=== PATIENT | female | born 1975 | race Caucasian/White ===

== ENCOUNTER → 2019-12-07 | Outpatient (CLI) | payer OTHER ==
[~2019-12-07] MED LIST: HEPARIN 1,000 UNITS/ML 10ML VIAL (FOR RADIOLOGY& DIALYSIS ONLY)(J1644-10) As Ordered ONE; ISOVUE-300 61% 50ML VIAL (Q9967) As Ordered ONE; LIDOCAINE 1% MDV 20ML VIAL As Ordered ONE; MIDAZOLAM INJ 2 MG/2 ML VIAL (J2250) As Ordered ONE; PRAV20TA2 PO; SYNT175T2 PO; TIZA4CAP PO; ULTR50TA8 PO; ZETI10TA16 PO; fentaNYL 100 MCG/2 ML INJECTION (J3010) As Ordered ONE
[2019-12-07 14:01] LABS: HEMATOCRIT 40.2 % (36.0-47.0); HEMOGLOBIN 13.6 g/dl (12.0-15.5); MEAN CORPUSCULAR HEMOGLOBIN 30.4 pg (27.0-33.0); MEAN CORPUSCULAR HGB CONC 33.8 g/dl (32.0-36.5); MEAN CORPUSCULAR VOLUME 89.7 fl (80.0-96.0); PLATELET COUNT, AUTOMATED 206 10^3/uL (150-450); RED BLOOD COUNT 4.48 10^6/uL (4.00-5.40)
[2019-12-07 14:28] LABS: BLOOD UREA NITROGEN 10 MG/DL (7-18); CALCIUM LEVEL 9.4 MG/DL (8.5-10.1); CARBON DIOXIDE LEVEL 27 MEQ/L (21-32); CHLORIDE LEVEL 108 MEQ/L (98-107); CREATININE FOR GFR 0.81 MG/DL (0.55-1.30); GLOMERULAR FILTRATION RATE > 60.0 (>58); GLUCOSE, FASTING 83 MG/DL (70-100); POTASSIUM SERUM 3.6 MEQ/L (3.5-5.1); SODIUM LEVEL 140 MEQ/L (136-145)
[2019-12-07 14:33] LABS: HCG, SERUM QUALITATIVE NEGATIVE (NEGATIVE)
--- NOTE | 2019-12-07 15:28 | ROOPDOC ---
[facility] Report Of Operation Report of Operation DATE OF PROCEDURE: 12/07/19 PREPROCEDURE DIAGNOSES: Factor V leiden, preoperative for spine surgery POSTPROCEDURE DIAGNOSES: Same PROCEDURE: 1. Vena cava gram 2. Placement of an Option infrarenal IVC filter 3. Completion venogram SURGEON: Ady Espino MD ANESTHESIA: Local anesthesia 5 mL lidocaine. Moderate intravenous conscious sedation was supervised by Dr. Espino. The patient was independently monitored by registered nurse assigned to the Department of radiology using automated blood pressure, EKG, and pulse oximetry. The detailed sedation record is permanently start in the hospital information system. The following is a brief sedation record: Start time 14:51, stop time 15:09, Versed 1 mg IV, fentanyl 25 g IV. INDICATION FOR PROCEDURE: This is a very pleasant 44-year-old patient who is undergoing spine surgery and has a history of factor V leiden and there is concern for perioperative DVT and PE while the patient is relatively immobile for a period of time with her surgery and recovery. Risks benefits and alternatives to an IVC filter placement were explained at length the patient she is agreeable to proceed. Informed consent was obtained. INTERPRETATION: 1. The vena cava is widely patent and free from thrombus. The renal veins are widely patent and identified and marked for IVC filter placement. The filter was placed in good infrarenal position with a scant amount of tilt that is not clinically significant. Following placement there is no extravasation and the IVC is widely patent. REPORT OF OPERATION: The patient was brought to the angiographic suite in stable condition. Her right upper extremities prepped and draped in sterile fashion. A timeout was performed. Sedation was administered without complication. Local anesthesia was Mr. to skin and subcutaneous tissue over the cephalic vein. Access was obtained and a wire was advanced and a micro-sheath was placed in the cephalic vein. A quick contrast injection confirmed we were in the cephalic vein in the vein was suitable size to support the sheath access to the SVC and IVC. We advanced Glidewire through the micro-sheath into the central system and through the superior vena cava. It took a moment but eventually were able to manipulate the wire down into the inferior vena cava. We then passed the sheath over the wire to approximately L3 and flushed sheath with saline. Vena cava gram was performed in the renal veins were identified and marked for filter placement. We then advanced the filter 2 and infrarenal position within the sheath. We retracted the sheath to deploy the filter which was in good position with the tip at the renal veins and scant amount of tilt. Completion venogram showed the filter to be in excellent position and no extravasation and no thrombus within the IVC or the filter. We then removed the sheath pressure was held at the antecubital access site for 5 minutes for good hemostasis. Sterile dressings were applied and the patient was taken to recovery in stable condition. She tolerated the procedure well and there were no compilations. ESTIMATED BLOOD LOSS: Approximately 1 mL. COMPLICATIONS: None. PLAN: Okay for the patient to resume normal activities, but for 24 hours no heavy lifting or strenuous exercise with the right upper extremity. After that, okay to resume activity as tolerated. We would like to see the patient back in 3 months for a bilateral lower extremity venous duplex and discussion of removal of IVC filter. Okay to proceed with spine surgery from vascular surgery standpoint. ADY ESPINO MD Dec 07, 2019 15:28
[2019-12-07 15:50] VITALS: BP 125/87
== END ==
LOC: M IRPRO 13:30
PROVIDERS: ATTEND Surgery Vascular Surgery
DX: D68.51 Activated protein C resistance (principal); E03.9 Hypothyroidism, unspecified; Z87.891 Personal history of nicotine dependence; Z86.718 Personal history of other venous thrombosis and embolism
CPT/HCPCS: 37191; 80048; 84703; 85027; 99152; C1769; C1880; C1894; J1644; J2250; J3010; Q9967

== ENCOUNTER 2019-12-17 11:00 | Inpatient (IN) | payer OTHER ==
--- NOTE | 2019-12-14 17:29 | HPE ---
DATE OF SCHEDULED ADMISSION: 12/20/2019 ATTENDING PHYSICIAN: Dr. Jean CHIEF COMPLAINT: Back pain. HISTORY: This is a pleasant 44-year-old female patient with progressively worsening back pain and stiffness. She has failed to improve with conservative management. She has elected for surgery for continued symptoms. She has consented for a left unilateral laminectomy at L4-5 and transforaminal interbody lumbar fusion at L4-5 with the use of iliac crest bone graft. ALLERGIES: None. MEDICATIONS: - Synthroid 25 mcg one tablet once per day - pravastatin 20 mg one tablet once per day - Zetia 10 mg one tablet once per day. - tizanidine 4 mg one tablet three times a day MEDICAL CONDITIONS: Include lumbar spondylolisthesis, lumbar spinal stenosis, lumbar radiculopathy, hypothyroidism, elevated cholesterol. SURGICAL HISTORY: None. FAMILY HISTORY: Arthritis, heart disease, elevated cholesterol, thyroid disease. SOCIAL HISTORY: She does not smoke. She rarely uses alcohol. She is employed through the . REVIEW OF SYSTEMS: Denies fever or chills. Denies chest pain, shortness breath or cough. Denies difficulty breathing. Denies abdominal pain. Notes persistent pain in her back, pain with weightbearing activities. PHYSICAL EXAM: Today reveals alert, well-nourished, well-developed female patient. She walks with a slow gait. Her mood and affect are appropriate. Her gait is not wide-based. Her neck is supple without adenopathy or jugular venous distention (JVD). Lungs are clear to auscultation without rales or wheeze. Heart Exam: Regular rate and rhythm. Abdomen: Bowel sounds are present. Exam of the back: Reveals the skin to be intact. No erythema, edema or ecchymosis. Straight leg raise testing is negative. There is diffuse tenderness along the lumbar spine. Mcrae's is negative. Clonus is negative. Deep tendon reflexes are trace at the knees. Well-perfused lower extremities. She can sensate light touch. LABORATORY DATA: None collected IMPRESSION: Symptomatic lumbar spinal stenosis and lumbar spondylolisthesis. PLAN: She is consented by Dr. Jean for a left unilateral laminectomy at L4-5 and transforaminal interbody fusion at L4-5 with the use of iliac crest bone graft from the right or left side planned. We did admitting counselor the patient about no use of nonsteroidal anti-inflammatory drugs (NSAIDS) five days prior to the surgery, nothing by mouth (n.p.o.) after midnight the night before surgery. She will need to call the hospital the day before; if it is a , then the Friday before to verify her time. She understands the importance of arrival on time. She will bring her back brace to the hospital with her. Her postoperative and preoperative instructions were reviewed. All of her questions were answered. MAEGAN
[~2019-12-17] VITALS: Ht 170.2 cm; Wt 88.0 kg
[~2019-12-17 11:00] MED LIST changes: -HEPARIN 1,000 UNITS/ML 10ML VIAL (FOR RADIOLOGY& DIALYSIS ONLY)(J1644-10) As Ordered ONE; -ISOVUE-300 61% 50ML VIAL (Q9967) As Ordered ONE; -LIDOCAINE 1% MDV 20ML VIAL As Ordered ONE; -MIDAZOLAM INJ 2 MG/2 ML VIAL (J2250) As Ordered ONE; -fentaNYL 100 MCG/2 ML INJECTION (J3010) As Ordered ONE
[2019-12-20] MEDS ORDERED: GABAPENTIN 300 MG CAP PO ONE (06:00)
[2019-12-20] MEDS ORDERED: PERCOCET 5MG/325MG TAB PO ONE (06:00)
[2019-12-20] MEDS ORDERED: CelecoXIB (CeleBREX) 100 MG CAP PO ONE (06:00)
[2019-12-20] MEDS ORDERED: LR 1,000 ML IV SCH (06:00)
[2019-12-20] MEDS ORDERED: ceFAZolin SOD 2 GM in IV 1 EA IV ONE (06:00)
[2019-12-20] MEDS ORDERED: TRANEXAMIC ACID 100 MG/ML 10ML VIAL As Ordered ONE (10:24)
[2019-12-20] MEDS ORDERED: EPINEPHrine INJ 1 MG/ML 1ML VIAL As Ordered ONE (10:24)
[2019-12-20] MEDS ORDERED: BACITRACIN PWD 50,000 UNITS VIAL As Ordered ONE (10:25)
[2019-12-20] MEDS ORDERED: THROMBIN SOLN 20,000 UNITS KIT As Ordered ONE (10:25)
[2019-12-20] MEDS ORDERED: BUPIVACAINE/EPIN 0.25% 30 ML VIAL As Ordered ONE (10:26)
[2019-12-20] MEDS ORDERED: BUPIVACAINE LIPOSOME/PF 1.3% 20ML VIAL (13.3MG/ML)(EXPAREL)(C9290 PER1MG) As Ordered ONE (10:26)
[2019-12-20] MEDS ORDERED: BUPIVACAINE HCL 0.5% 10 ML VIAL As Ordered ONE (10:26)
[2019-12-20] MEDS ORDERED: VANCOMYCIN HCL 500 MG/10 ML VIAL (J3370) As Ordered ONE (10:27)
[2019-12-20] MEDS ORDERED: LIDOCAINE 2% INJ 100 MG/5 ML SDV (FOR ANES.) As Ordered ONE (13:08)
[2019-12-20] MEDS ORDERED: ROCURONIUM BROMIDE 50 MG/5 ML VIAL As Ordered ONE ×3 (13:08→14:33)
[2019-12-20] MEDS ORDERED: ONDANSETRON 4MG/2ML VIAL (J2405) As Ordered ONE (13:08)
[2019-12-20] MEDS ORDERED: dexameTHASONE 4 MG/ML 1ML VIAL (J1100) As Ordered ONE (13:08)
[2019-12-20] MEDS ORDERED: fentaNYL 100 MCG/2 ML INJECTION (J3010) As Ordered ONE ×2 (13:08→19:23)
[2019-12-20] MEDS ORDERED: METOCLOPRAMIDE INJ 10MG/2ML VIAL (J2765) As Ordered ONE (13:08)
[2019-12-20] MEDS ORDERED: propofoL 200 MG/20 ML VIAL As Ordered ONE (13:08)
[2019-12-20] MEDS ORDERED: MIDAZOLAM INJ 2 MG/2 ML VIAL (J2250) As Ordered ONE (13:08)
[2019-12-20] MEDS ORDERED: HYDROmorphone HCL 2 MG/ML 1ML VIAL (J1170) As Ordered ONE (13:09)
[2019-12-20] MEDS ORDERED: LACRILUBE (AKWA TEARS) OPHTH OINT 3.5 GM As Ordered ONE (13:10)
[2019-12-20] MEDS ORDERED: SUGAMMADEX SODIUM 500 MG/5 ML VIAL (BRIDION) As Ordered ONE (13:11)
[2019-12-20] MEDS ORDERED: ceFAZolin 2 GM/D5W 50 ML IV BAG (J0690 PER 500MG) As Ordered ONE (16:28)
[2019-12-20] MEDS ORDERED: ACETAMINOPHEN 1000MG 100ML IV BTL (OFIRMEV) (J0131 PER 10MG) As Ordered ONE (18:26)
[2019-12-20] MEDS ORDERED: ePHEDrine SULFATE 25 MG/5 ML(5MG/ML) SYRINGE As Ordered ONE (18:30)
--- NOTE | 2019-12-20 19:18 | REP ---
Partial lumbar spine: Two views. History: L4-5 spondylolisthesis. 5 minutes 6 seconds of fluoroscopy time is reported. Findings: A sequence of two last image hold fluoroscopically obtained spot radiographs of the lumbar spine document L4-5 lumbar spine fusion hardware placement. Electronically Signed by Clifford Davis MD 12/20/2019 08:10 P
[2019-12-20] MEDS: fentaNYL 100 MCG/2 ML INJECTION (J3010) IV PRN ×4 (19:25→19:42)
[2019-12-20] MEDS ORDERED: ONDANSETRON 4MG/2ML VIAL (J2405) IV PRN ×2 (19:30→20:45)
[2019-12-20] MEDS ORDERED: oxyCODONE 5MG TAB PO PRN (19:30)
[2019-12-20] MEDS ORDERED: MORPHINE 10 MG/ML 1ML VIAL (J2270) As Ordered ONE (19:41)
[2019-12-20] MEDS: MORPHINE 2 MG/ML 1ML VIAL (J2270) IV PRN ×3 (19:47→19:58)
[2019-12-20] MEDS ORDERED: PROMETHAZINE INJ 25 MG/ML VIAL (J2550) IV PRN (20:31)
[2019-12-20] MEDS ORDERED: HYDROMORPHONE HCL 0.5 MG/ 0.5 ML SYRINGE (J1170 PER 1) IV PRN ×2 (20:31)
[2019-12-20] MEDS ORDERED: PERCOCET 5MG/325MG TAB PO PRN (20:31)
[2019-12-20 20:37] VITALS: BP 120/77
[2019-12-20] MEDS: ceFAZolin SOD 2 GM in IV 1 EA IV SCH (20:52)
[2019-12-20] MEDS: D5W/LR 1,000 ML IV SCH (20:53)
[2019-12-20 21:07] VITALS: BP 118/76
[2019-12-20 22:07] VITALS: BP 118/75
[2019-12-20 22:59] VITALS: BP 117/76
[2019-12-20 23:30] VITALS: BP 120/74
[2019-12-20] MEDS: PERCOCET 5MG/325MG TAB PO PRN (23:31)
[2019-12-21] VITALS (7 sets, daily range): BP systolic 104–121; BP diastolic 68–76
[2019-12-21] MEDS: ceFAZolin SOD 2 GM in IV 1 EA IV SCH ×2 (02:00→06:36)
[2019-12-21] MEDS: LEVOTHYROXINE 125MCG TABLET (0.125MG) PO SCH (06:35)
[2019-12-21] MEDS: LEVOTHYROXINE 50MCG TABLET (0.05MG) PO SCH (06:35)
[2019-12-21] MEDS ORDERED: PERC5TAB12 PO (06:39)
[2019-12-21] MEDS: PERCOCET 5MG/325MG TAB PO PRN ×4 (06:46→20:07)
[2019-12-21] MEDS ORDERED: DULC10SU2 PR (08:17)
[2019-12-21] MEDS ORDERED: CALCCAP4 PO (08:17)
[2019-12-21] MEDS: CYCLOBENZAPRINE 10 MG TAB PO PRN ×2 (08:59→19:10)
[2019-12-21] MEDS: D5W/LR 1,000 ML IV SCH (09:01)
[2019-12-21] MEDS: CALCIUM CARBONATE 500 MG CHEW U/D PO SCH (09:30)
[2019-12-21] MEDS: METAMUCIL (PSYLLIUM) PACKET PO SCH (09:30)
[2019-12-21] MEDS: GABAPENTIN 100 MG CAP PO SCH ×3 (09:31→20:07)
[2019-12-21] MEDS: VITAMIN D (CHOLECALCIFEROL) 400 INTERNATIONAL UNITS TAB PO SCH (09:31)
[2019-12-21] MEDS ORDERED: CelecoXIB (CeleBREX) 100 MG CAP PO ONE (12:30)
[2019-12-22] MEDS: PERCOCET 5MG/325MG TAB PO PRN ×3 (03:05→12:29)
[2019-12-22] MEDS: LEVOTHYROXINE 125MCG TABLET (0.125MG) PO SCH (05:19)
[2019-12-22] MEDS: LEVOTHYROXINE 50MCG TABLET (0.05MG) PO SCH (05:19)
[2019-12-22] MEDS: CYCLOBENZAPRINE 10 MG TAB PO PRN (05:24)
[2019-12-22 05:46] VITALS: BP 110/70
[2019-12-22] MEDS ORDERED: LOVE1INJ SC ×2 (08:14→08:16)
[2019-12-22] MEDS: CALCIUM CARBONATE 500 MG CHEW U/D PO SCH (08:20)
[2019-12-22] MEDS: GABAPENTIN 100 MG CAP PO SCH (08:20)
[2019-12-22] MEDS: METAMUCIL (PSYLLIUM) PACKET PO SCH (08:20)
[2019-12-22] MEDS: VITAMIN D (CHOLECALCIFEROL) 400 INTERNATIONAL UNITS TAB PO SCH (08:20)
--- NOTE | 2019-12-23 08:42 | RO ---
DATE OF PROCEDURE: 12/20/2019 PREOPERATIVE DIAGNOSIS: L4-5 spondylolisthesis with left greater than right lower extremity radiculopathy. POSTOPERATIVE DIAGNOSIS: L4-5 spondylolisthesis with left greater than right lower extremity radiculopathy. PROCEDURE PERFORMED: Left L4 unilateral laminectomy for decompression of the thecal sac and exiting nerve root, left L5 unilateral laminectomy for decompression of the thecal sac and traversing nerve root, transforaminal lumbar interbody fusion L4-5 including disc removal and plate preparation and application of bone graft, use of application of biomechanical intervertebral device, percutaneous bilateral pedicle screw non-segmental instrumentation L4-L5, harvest and placement of left iliac crest autograft for spine surgery, harvest and placement of local graft for spine surgery. SURGEON: Dr. Kavon Jean. SHIP CARPENTER: KATIE Vail. ANESTHESIA: General endotracheal. ESTIMATED BLOOD LOSS: 150 mL replaced with crystalloid. COMPLICATIONS: None. COMPONENTS USED: Included DePuy VIPER PRIME system, 7 mm x 40 mm screws x 3, 7 mm x 45 mm screw x 1, 40 mm connecting rods x 2, 12 x 12 4WEB titanium Truss system, appropriate end caps, demineralized bone and bone matrix putty 10 mL. INDICATIONS FOR SURGERY: Left more than right lower extremity radicular symptoms back pain, radiographic and MRI evidence of spondylolisthesis at L4-5 dynamic and nerve root taper. Failure of other conservative managements to give lasting relief. Consent reviewed in detail with the patient including a jonn discussion of the pathology involved, procedure proposed, alternatives including doing nothing and risks including not limited to pain, failure, infection, bleeding blood loss, blood clots, incomplete relief, nerve injury, need for more surgery, or other complications. Specifically in this patient's case, she does have a history of blood clots and had a preoperative vena cava filter. She understands she is at increased risk for coagulopathic event and wants to proceed. DESCRIPTION OF PROCEDURE: Identified in the holding area, site side verified. Brought to the operating room and general and tracheal anesthesia was administered. She was positioned on the Anurag frame for exposure of the lumbar spine, knees slightly flexed, axillary rolls utilized. Once I and the warehouse handler were comfortable with the patient's positioning, she was then sterilely prepped and draped in the usual fashion. Time-out was accomplished. We then began the procedure. I utilized Loupe magnification and headlamp for the first portion of the procedure. I stood on the patient's left, Mr. Choudhary on the right but we did alternate for different riggs points of the surgical procedure. The first portion of the procedure, we identified landmarks. We fluoroscopically localized the pedicles of L4 and L5 bilaterally and marked them. Open incision was made with the 10 blade knife after infiltration with 0.25% Marcaine with epinephrine. The incision was approximately three fingerbreadths 1 cm to the left para midline and developed through subcuticular tissues to the posterior lumbar fascia. Then transverse incisions were made the fascia for placement of the VIPER PRIME targeting device. For the patient's left side, where the decompression would be accomplished, we utilized the Jamshidi needle to place the guidewire. Fluoroscopy was utilized to locate the lateral border of the pedicle. The Jamshidi needle was moved from the lateral border of the pedicle into the pedicle visualized with fluoroscopy alternating AP and lateral planes. We began at the L5 pedicle. Once the Jamshidi was through the pedicle and verified to be in the vertebral body in AP and lateral plane, we advanced the guidewire into the vertebral body. The Jamshidi needle was then removed. The wire retained and swept to the side with a small towel clamp to the drape. Next the L4 pedicle was cannulated in the same fashion and the wire was clamped away from the incision. Next, we then made transverse incisions on the contralateral side using a 10 blade over the pedicle. Here we made another incision in the posterior lumbar fascia and then advanced the blunt dilator to the location of the pedicle, again L5 first. I then utilized the VIPER PRIME targeting device. At the lateral border the pedicle, I tamped the VIPER PRIME device and a guidewire into place. We then continued advancing the guidewire and taping it into it into place verifying its location in the AP and lateral alternate fluoroscopy until it was in the vertebral body. We then advanced the 45 mm pedicle screw into the vertebral body at L5. Next, at L4 we likewise utilized the dilator followed by the VIPER PRIME targeting device in a similar fashion. Here I felt that the pedicle tract tended towards the lateral side of the pedicle. This was verified fluoroscopically and was felt to be within the vertebral body, slightly lateral of midline and therefore I selected a 40 mm screw at this level. We removed the targeting device and we installed a 40 mm as opposed to a 45 mm screw on the targeting device. I then cannulated the same hole taped the wire into place advancing it using the VIPER PRIME targeting device verifying fluoroscopic planes. I then advanced the pedicle screw using the VIPER PRIME device. The cannula was withdrawn as the screw was implanted in the usual fashion. Placement of the screws were verified fluoroscopically in AP and lateral plane as well as an en face view directly down both pedicles found to be adequate. Next, at this stage, on the left side we reflected the paraspinals off of the spinous processes of 4 and 5 and continued dissection down the lamina of 4 exposing the L4-5 interspace out over the facet complex on the left. Leksell was utilized to remove facet complex on the left. We did visualize the guidewires in this process and protected. Next, once this was accomplished the shadow line retractor was placed. Incidentally, the facets were appreciated to be quite hypertrophic, arthritic and had an open area consistent with instability. Next, at this point my Loupe and headlamp magnification were removed. We moved the operating microscope in for additional portions of procedure. This facilitated safe use of the high-speed bur. I utilized a Lukens trap on suction to evacuate bur milling, which were utilized as bone graft. I utilized the high-speed bur to implement the left unilateral laminectomy of the L4 level extending superiorly through the bare area of L4, further laterally removing additional inferior facet of 4 and superior facet of 5 and through the L5 lamina to the bare area of 5. I then removed ligamentum flavum using a curved curet. I also utilized #2 and #3 Kerrisons to remove ligamentum flavum identifying the thecal sac. Bipolar cautery was then utilized to coagulate epidural veins. I utilized a Land-Colby to further clear the traversing L5 nerve root which was protected and swept medially. The bulging disc complex was appreciated. I utilize an 11 blade knife to implement an annulotomy of the L4-L5. Next, additionally we decompressed the exiting L4 nerve root as it exited along the superior aspect of that disc. I utilized pituitaries to remove disc material followed by paddle reamers to ream up through a size10 paddle reamer. I then utilized broaches and the vein curets to remove cartilaginous endplate and additional disc material in addition to pituitaries. Next, irrigation was accomplished, removing additional disc material. Once this accomplished I utilized a blunt 12 paddle reamer to verify that a size 12 height cage would fit appropriately at this level and securely. Next, we trialled a size 10 x 12 sounding cage and rotated the sounding cage to the 12 height position and this was felt to also fit appropriately. The cage was then removed. Mr. Choudhary protected the traversing nerve root with the suction levels as I placed the cage. Next the trial cage was removed. Next, irrigation was accomplished the operating microscope was moved from the operating field. Next we then exposed the left posterior-superior iliac spine and opened the posterior-superior iliac spine using Leksell's retaining bone graft material. I then utilized large De Guzman curets to remove additional bone graft material from the iliac crest. This was retained for bone graft. I then believed we had an adequate volume of bone graft and irrigated including irrigation with TXA. I anesthetized using Exparel solution, closed the fascial wound using interrupted stitch. Next, this bone graft was then pressed into the 12 x 12 mm 4WEB cage along with demineralized bone matrix putty. Additional iliac crest bone graft material was mixed with demineralized bone matrix putty as well as the bur millings, and placed into a bone funnel. This funnel was placed into the interspace at 4-5 and the morselized bone graft DPM/DBX mixture was pressed into the interspace. A size 6 blunt paddle reamer was then utilized to spread this bone graft in the 4-5 interspace. Next, once this was accomplished the 12 x 12 4WEB cage was obtained. Mr. Choudhary retracted nerve root using a suction levels. I placed the interbody device at the entrance of the annulotomy and tamped it into place using a mallet. Lateral fluoroscopy was utilized to verify advancing of the cage. Once the cage was advanced fluoroscopically, I then removed the installation tamp. I then directly observed placement of the 4WEB cage and palpated the posterior cage using a Land-Colby and verified that it was deepened to the posterior edge of the L5 vertebrate and also just beyond the margin of the L4 vertebral body edge bilaterally. Fluoroscopic images were utilized also to verify cage placement in the lateral plane and then the AP plane. Next, once this was accomplished, I placed the 40 mm connecting florentino into the VIPER PRIME guide flanges. Next, I verified the florentino was place using the marked end cap driving and set the end caps. I locked the L5 end cap and we compressed from 4 through 5 and then locked the L4 end cap. Both end caps were locked using the counter torque device and the torque truss driver helper. Next in a similar fashion the connecting florentino was installed on the contralateral right side. Final fluoroscopic images verified connecting florentino placement. We also compressed on the right side. Next, torque counter torque device was then placed over the flanges and the torque truss driver helper was utilized to torque the caps on the right side. The breakaway device was utilized to break the VIPER PRIME flanges off. Next, once this was accomplished bilaterally. The wound was irrigated and inspected for bleeding. We inspected the thecal sac. We appreciated no leak. Irrigation included irrigation with saline solution. We also irrigated with concentrated bacitracin solution and vancomycin crystals were placed over the wound. Next, all retractor devices were removed. I placed a drain, 7 Yousif exiting superolaterally to the left over the interspace through a separate incision. Next fascial tissues were then re-approximated with interrupted stitch. Miri fascia re-approximated with interrupted stitch. Deep dermis with interrupted Vicryl stitch. Pernio dressing was placed over the midline incisions. A separate dressing was placed over the drain. Next at the conclusion of the case, the patient was able to be log-rolled to the hospital bed extubated appreciated to be moving all four extremities, moved to the recovery room in good condition. For further details please refer to medical record. Mr. Choudhary present and participated in all aspects of the case including retraction assisting with positioning and use of the operating microscope in the capacity of cutter first.
== END 2019-12-22 13:55 | disposition home or self-care (01) | DRG 455 ==
LOC: EDSTATUS 11:00 → M OR 12-20 10:07 → M MS5PR 12-20 20:30
PROVIDERS: ADMIT Orthopaedic Surgery; ATTEND Orthopaedic Surgery
PROC: 0SG00AJ Fusion of Lumbar Vertebral Joint with Interbody Fusion Device, Posterior Approach, Anterior Column, Open Approach (ICD-10-PCS; 2019-12-20)
PROC: 0QB30ZZ Excision of Left Pelvic Bone, Open Approach (ICD-10-PCS; 2019-12-20)
PROC: 0SG0071 Fusion of Lumbar Vertebral Joint with Autologous Tissue Substitute, Posterior Approach, Posterior Column, Open Approach (ICD-10-PCS; principal; 2019-12-20 13:00)
DX: M43.16 Spondylolisthesis, lumbar region (principal); Z79.899 Other long term (current) drug therapy; E03.9 Hypothyroidism, unspecified; E78.00 Pure hypercholesterolemia, unspecified

== ENCOUNTER → 2019-12-20 | Outpatient (CLI) | payer OTHER ==
[~2019-12-20] MED LIST changes: +CALCCAP4 PO; +DULC10SU2 PR; +LOVE1INJ SC; +PERC5TAB12 PO
--- NOTE | 2019-12-20 21:34 | ECGEPIP ---
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
== END ==
LOC: M EKG 09:48
PROVIDERS: ATTEND Anesthesiology
DX: Z01.818 Encounter for other preprocedural examination (principal); Z86.718 Personal history of other venous thrombosis and embolism; D68.2 Hereditary deficiency of other clotting factors

== ENCOUNTER → 2020-02-17 | Outpatient (CLI) | payer OTHER ==
--- NOTE | 2020-02-18 02:04 | REP ---
Clinical: Follow up. Prior venous thrombosis. Technique: Real time willingham scale and color Doppler evaluation of the bilateral lower extremities using linear high frequency transducer. Findings: Ultrasound examination of the bilateral lower extremity deep venous structures from the common femoral vein to the popliteal vein straits normal compressibility, flow, and wave patterns in response to respiration and augmentation. There is no evidence for deep venous thrombosis. Impression: Negative examination. No evidence for DVT. Electronically Signed by Manuel Eden MD 02/18/2020 01:56 A
== END ==
LOC: M RAD 12:56
PROVIDERS: ATTEND Physician Assistant
DX: Z86.718 Personal history of other venous thrombosis and embolism (principal)

== ENCOUNTER → 2020-03-28 | Outpatient (CLI) | payer OTHER ==
[~2020-03-28] MED LIST changes: +ISOVUE-300 61% 50ML VIAL As Ordered ONE; +LIDOCAINE 1% MDV 20ML VIAL As Ordered ONE; +MIDAZOLAM INJ 2MG/2ML VIAL (J2250 PER 1MG) As Ordered ONE; +TIZA4CAP6 PO; +TYLE650T35 PO; +fentaNYL 100 MCG/2 ML INJECTION (J3010) As Ordered ONE
[2020-03-28 10:43] LABS: HEMOGLOBIN 12.9 g/dl (12.0-15.5); MEAN CORPUSCULAR HEMOGLOBIN 28.9 pg (27.0-33.0); MEAN CORPUSCULAR HGB CONC 33.1 g/dl (32.0-36.5); MEAN CORPUSCULAR VOLUME 87.4 fl (80.0-96.0); PLATELET COUNT, AUTOMATED 243 10^3/uL (150-450); RED BLOOD COUNT 4.46 10^6/uL (4.00-5.40); WHITE BLOOD COUNT 7.2 10^3/uL (4.0-10.0)
[2020-03-28 11:12] LABS: BLOOD UREA NITROGEN 17 MG/DL (7-18); CALCIUM LEVEL 9.1 MG/DL (8.5-10.1); CARBON DIOXIDE LEVEL 25 MEQ/L (21-32); CHLORIDE LEVEL 109 MEQ/L (98-107); CREATININE FOR GFR 0.69 MG/DL (0.55-1.30); GLOMERULAR FILTRATION RATE > 60.0 (>58); GLUCOSE, FASTING 83 MG/DL (70-100); HCG, SERUM QUALITATIVE NEGATIVE (NEGATIVE); POTASSIUM SERUM 4.1 MEQ/L (3.5-5.1); SODIUM LEVEL 139 MEQ/L (136-145)
[2020-03-28 13:45] VITALS: BP 133/87
--- NOTE | 2020-03-28 15:48 | ROOPDOC ---
[facility] Report Of Operation Report of Operation DATE OF PROCEDURE: 03/28/20 PREPROCEDURE DIAGNOSES: Presence of an inferior vena cava filter, no longer needed POSTPROCEDURE DIAGNOSES: Same PROCEDURE: 1. Ultrasound-guided access right internal jugular vein 2. Vena cava gram 3. Attempt to remove IVC filter, aborted SURGEON: Ady Espino MD ANESTHESIA: Local anesthesia 3 mL lidocaine. Moderate intravenous conscious sedation was supervised by Dr. Espino. The patient was independent only monitor by registered nurse assigned to the Department of radiology using automated blood pressure, EKG, and pulse oximetry. The detailed sedation record is permanently stored in the hospital information system. The following is a mikayla sedation record: Start time 11:36, stop time 12:44, Versed 2 mg IV, fentanyl 75 g IV. INDICATION FOR PROCEDURE: This is a very pleasant 44-year-old patient who had an IVC filter placed prior to recent spine surgery, and she is well recovered and we discussed the risks benefits and alternatives to removing her IVC filter. She is agreeable to proceed. Informed consent was obtained. INTERPRETATION: 1. Vena cava gram reveals a mild tilt of the filter to the right with the tip near the left with the tip near the left renal vein. There is no thrombus within the filter. REPORT OF OPERATION: The patient was brought to the angiographic suite in stable condition. Her right neck was prepped and draped in a sterile fashion. A timeout was performed. Sedation was administered without complication. Local anesthesia was administered to the skin and subcutaneous tissue over the jugular vein and a microneedle was used to access the vein under ultrasound guidance. A wire was passed through this access and the needle was removed. A micro-sheath was placed and through this access the Glidewire was advanced into the central system and into the vena cava under fluoroscopic guidance. We then passed an 8 Egyptian dilator over the wire using a Seldinger technique and then placed a 12 Egyptian sheath over the wire and flushed the sheath was saline. We then advanced a snare through the sheath and attempted to snare the of the IVC filter. We spent about 20 minutes trying to snare the IVC filter with this snare, and then we exchange this for a different snare with a large loop. Unfortunately, every time the snare would get close to the hook of the IVC filter, it would bounce off what looked like fibrin at the tip of the IVC filter. Despite JOSE and BOUDREAUX angles with fluoroscopy, and multiple attempts for another 20 minutes to snare, we could not snare the hook. We then exchanged for a smaller loop snare and again tried for about 15 more minutes. At this point, I felt we had established that there was some type of fibrin near the hook of the IVC filter that was preventing us from passing the snare around it. I felt due to the length of time of the procedure, we should abort the procedure for today and then bring the patient back to clinic to discuss options to either weight filter in place or try again with a different type of procedure to try to remove the IVC filter. The patient was agreeable to this and the sheath was removed and pressure was held at the jugular access site for 10 minutes. Sterile dressings were applied and the patient was taken to recovery in stable condition. She tolerated the procedure and the sedation well. ESTIMATED BLOOD LOSS: Approximately 2 mL. COMPLICATIONS: None. PLAN: We will monitor the patient 30 minutes postprocedure and then she will be discharged home. She should keep her head elevated to diminish venous pressure in the right jugular vein for the rest of the day. Try to avoid bending over at the waist as well. Okay for ice and Tylenol or ibuprofen for neck pain as needed. Follow-up in one week to discuss options for repeat attempt to remove IVC filter versus leaving IVC filter in place. The patient and her were thoroughly counseled after the procedure, and we will discuss options further in clinic. We appreciate the opportunity to participate in the care of this patient. ADY ESPINO MD Mar 28, 2020 15:48
--- NOTE | 2020-03-28 16:20 | ROOPDOC ---
[facility] Report Of Operation Report of Operation DATE OF PROCEDURE: 03/28/20 PREPROCEDURE DIAGNOSES: Renal failure requiring access for dialysis after removal right IJ PermCath for bleeding POSTPROCEDURE DIAGNOSES: Same PROCEDURE: 1. Ultrasound-guided access right internal jugular vein 2. Placement of a 23 cm tunneled dual-lumen PermCath SURGEON: Ady Espino MD ANESTHESIA: Local anesthesia with 18 mL lidocaine with epinephrine. Moderate intravenous conscious sedation with supervised by Dr. Espino. The patient was independently monitored by a registered nurse assigned to the Department of radiology using automated blood pressure, EKG, and pulse oximetry. The details sedation record is permanently stored in the hospital information system. The following is the brief sedation record: Start time 15:51, stop time 16:13, Versed 1 mg IV, fentanyl 50 g IV, Ancef 1 G IV. INDICATION FOR PROCEDURE: This is a very pleasant 52-year-old patient with renal failure who is dialyzing with a right IJ PermCath placed by Dr. Willson in the recent past, and he developed acute significant bleeding from the catheter. Risks benefits and alternatives were explained for removal of the right IJ catheter, which has been completed, as well as placement of a new right IJ PermCath. The patient is agreeable to proceed. Informed consent was obtained. INTERPRETATION: 1. Catheter is in good position with no kinks in the catheter. The tips were freely mobile at the SVC right IJ junction. There is no pneumothorax. REPORT OF OPERATION: Patient was brought to the angiographic suite in stable condition. His right neck and chest were prepped and draped in a sterile fashion. A timeout was performed. Sedation and antibiotics were administered without complication. Local anesthesia was administered to the skin and subcutaneous tissue over the right neck at the jugular access site, and then over the neck towards the clavicle in the right chest for tunneling of the catheter. Ultrasound was used to guide access to the jugular vein with a microneedle and a wire was passed through this access into the central system under fluoroscopic guidance. The needle was removed and a micro-sheath was placed over the wire using a Seldinger technique. A J-wire was advanced into the central system under fluoroscopic guidance. An incision was made at the jugular access site and on the right chest. We then tunneled a 23 cm PermCath from the right chest to the jugular access site until the cuff was within the subcutaneous tissue. We then performed 2 serial dilations over the wire using a Seldinger technique and then placed a peel-away sheath over the wire and the inner cannula and wire were removed. The tips of the catheter were then advanced through the peel-away sheath into the central system in the peel-away sheath was removed. Both ports tanner back and flushed easily and were heparin locked. The incisions were irrigated and the jugular access site was closed with deep and superficial interrupted Monocryl sutures. Dermabond was placed at the skin. A Prolene sutures were placed at the exit site on the chest. We then secure the catheter to the chest wall with 2 additional Prolene sutures. Sterile dressings were applied. The patient was then taken to recovery in stable condition. He to lerated the procedure and the sedation well. ESTIMATED BLOOD LOSS: Approximately 2 mL. COMPLICATIONS: None. PLAN: Okay to resume home diet medications. Keep head elevated for the rest of the day. Try to rest sitting up or with multiple pillows behind head and shoulders, and try to avoid bending over at the waist, as this can help relieve venous pressure in the jugular vein and decreased chance of bleeding. Okay to use right IJ PermCath for dialysis. We appreciate the opportunity to participate in the care of this patient. ADY ESPINO MD Mar 28, 2020 16:20
== END ==
LOC: M IRPRO 10:15
PROVIDERS: ATTEND Surgery Vascular Surgery
DX: N18.6 End stage renal disease (principal); Z45.2 Encounter for adjustment and management of vascular access device; Z53.8 Procedure and treatment not carried out for other reasons; Z86.718 Personal history of other venous thrombosis and embolism
CPT/HCPCS: 36558; 37193; 80048; 84703; 85027; 99152; 99153; C1757; C1769; C1773; C1894; J1644; J2250; J3010; Q9967

== ENCOUNTER → 2020-05-05 | Outpatient (CLI) | payer OTHER ==
[2020-05-05 15:46] LABS: HEMATOCRIT 37.6 % (36.0-47.0); HEMOGLOBIN 12.7 g/dl (12.0-15.5); MEAN CORPUSCULAR HEMOGLOBIN 29.3 pg (27.0-33.0); MEAN CORPUSCULAR HGB CONC 33.8 g/dl (32.0-36.5); MEAN CORPUSCULAR VOLUME 86.8 fl (80.0-96.0); PLATELET COUNT, AUTOMATED 198 10^3/uL (150-450); RED BLOOD COUNT 4.33 10^6/uL (4.00-5.40); WHITE BLOOD COUNT 6.5 10^3/uL (4.0-10.0)
[2020-05-05 16:09] LABS: BLOOD UREA NITROGEN 13 MG/DL (7-18); CALCIUM LEVEL 8.7 MG/DL (8.5-10.1); CARBON DIOXIDE LEVEL 25 MEQ/L (21-32); CHLORIDE LEVEL 109 MEQ/L (98-107); CREATININE FOR GFR 0.75 MG/DL (0.55-1.30); GLOMERULAR FILTRATION RATE > 60.0 (>58); GLUCOSE, FASTING 80 MG/DL (70-100); POTASSIUM SERUM 3.6 MEQ/L (3.5-5.1); SODIUM LEVEL 139 MEQ/L (136-145)
--- NOTE | 2020-05-05 17:54 | ROOPDOC ---
[facility] Report Of Operation Report of Operation DATE OF PROCEDURE: 05/05/20 PREPROCEDURE DIAGNOSES: Presence of IVC filter status post pulmonary embolus POSTPROCEDURE DIAGNOSES: Same PROCEDURE: 1. Vena cava gram 2. Removal IVC filter 3. Completion vena cava gram SURGEON: Ady Espino MD ANESTHESIA: Local anesthesia 1 mL lidocaine. Moderate intravenous conscious sedation was supervised by Dr. Espino. The patient was independently monitored by a registered nurse assigned to the Department of radiology using automated blood pressure, EKG, and pulse oximetry. The detailed sedation record is permanently stored in the hospital information system. The following is a brief sedation record: Start time 16:46, stop time 17:24, Versed 1.5 mg IV, fentanyl 75 g IV. INDICATION FOR PROCEDURE: This is a very pleasant 44-year-old patient with a history of DVT and PE who has an IVC filter that she no longer needs. Risks benefits and alternatives to removal of the IVC filter were explained. We have attempted removal one time previously, a month ago, but were unsuccessful due to fibrin growth around the hook and filter. Today, I explained to the patient we would try a few different things to try to remove the filter. We which try from the neck a wire loop to mobilize the filter in order to snare it, and if this is unsuccessful we will try access from the groin and placed the balloon beside the filter to try to push towards the sheath in order to snare it. Risks benefits and alternatives were explained and the patient is agreeable to proceed. Informed consent was obtained. We did explain to her that we would do her best to remove the filter, but it was unsuccessful this time, likely is to ingrown to remove. She understands this is a possibility. INTERPRETATION: 1. Ultrasound-guided access right internal jugular vein 2. Initial vena cava gram confirms there is no thrombus in the filter. 3. After removal of the filter, completion vena cava gram reveals that there is still excellent flow through the vena cava with no luminal irregularities and no extravasation noted. The renal veins are widely patent. No portion of the filter was left behind. REPORT OF OPERATION: The patient was brought to the angiographic suite in stable condition. Her right groin and her right neck were prepped and draped in a sterile fashion. A timeout was performed. Sedation was administered without complication. Local anesthesia was administered to the skin and subcutaneous tissue over the right neck. A microneedle was used to access the right jugular vein under ultrasound guidance. A wire was passed through this access under fluoroscopic guidance needle was removed. Small incision was made at the neck with the skin knife and a 4 Ghanaian sheath was placed and flushed with saline. We then advanced a Glidewire into the superior vena cava and then utilized a glide cath over the Glidewire to navigated into the inferior vena cava. Then, over the wire using a Seldinger technique, 2 serial dilations were performed with an 8 Fr ench and 10 Ghanaian dilator, and then a 12 Ghanaian 45 cm sheath was advanced into the inferior vena cava just distal to the filter. Sheath was flushed with saline. A vena cava gram was performed. Please see interpretation above. Next, we retracted the sheath a few centimeters until it was proximal to the hook of the filter. We then utilized and Omni Flush catheter and Glidewire in order to look around the inferior aspect of the filter and advanced the wire proximal back towards the sheath. A small tulip snare was used to grab the end of the wire and we then were able to pull the wire out through the sheath. With both ends of the wire external to the sheath looped through the filter, we were able to mobilize the filter towards the sheath and disengage it from its fibrin sheath. Next, we advanced a 6 Ghanaian tulip snare and were able to successfully navigated over the hook to secure the hook. We then advanced the sheath over the snare, the filter, and the wire. This was all then removed and a single unit and the filter was examined. It was found to be completely intact and no portion was left behind. Completion vena cava gram showed there is widely patent inflow through the vena cava no extravasation and the renal veins are widely patent. We then removed the sheath and pressure was held at the neck for 15 minutes for good hemostasis. The patient was then taken to recovery in stable condition and monitored postprocedure. She was discharged home in stable condition. She tolerated the procedure and the sedation well. ESTIMATED BLOOD LOSS: Approximately 2 mL. COMPLICATIONS: None. PLAN: It is okay for the patient to resume home diet medications. She should keep her head elevated for the next 12 hours to minimize venous pressure and bruising. It is okay to use ice on her neck for comfort. She can also take Tylenol or ibuprofen for pain. We will see her back in a week to check her access site and see how she is doing. We appreciate the opportunity to participate in the care of this patient. ADY ESPINO MD May 05, 2020 17:54
[2020-05-05 18:03] VITALS: BP 132/76
== END ==
LOC: M IRPRO 14:11
PROVIDERS: ATTEND Surgery Vascular Surgery
DX: Z45.89 Encounter for adjustment and management of other implanted devices (principal); Z86.711 Personal history of pulmonary embolism; Z86.718 Personal history of other venous thrombosis and embolism